=== PATIENT | female | born 1980 | race African-American/Black ===

== ENCOUNTER 2020-10-15 16:52 | Emergency (ER) | payer BC, MEDICAID, SELFPAY ==
[2020-10-15] VITALS (8 sets, daily range): BP systolic 108–117; BP diastolic 72–87; PULSE 68–86; RESP 16–31; TEMP 36.2–36.7; O2SAT 97–100
--- NOTE | ~2020-10-15 | CT_ITS ---
EXAMINATION: CT brain wo con DATE: 10/15/2020 17:07 INDICATION: Seizure TECHNIQUE: Computed tomography (CT) of the head was performed without intravenous contrast. Sagittal and coronal reconstructions were performed. The mA was adjusted according to patient size. Iterative reconstruction technique was employed. The dose-length product was 605.33 mGy-cm. COMPARISON: None FINDINGS: No acute intracranial hemorrhage, acute infarction or abnormal extra axial fluid collection. Ventricl es are normal and symmetric. No mass/mass effect. The orbits, paranasal sinuses and mastoid air cells are normal. IMPRESSION: 1. Normal head CT. Reviewed, dictated and finalized at location A. NG MAN IMPRESSION: 1. Normal head CT.
--- NOTE | 2020-10-15 16:54 | ECG_ITS ---
Measurements Intervals [place] Rate: 86 P: 42 OR: 170 QRS: -3 QRSD: 92 T: -3 QT: 379 QTc: 455 Interpretive Statements SINUS RHYTHM VOLTAGE CRITERIA FOR LVH BORDERLINE T WAVE ABNORMALITY- ANT/INF LEADS BORDERLINE ECG Electronically Signed On 10-15-2020 19:58:14 NURSING INFORMATICS CLINICAL ANALYST by Rolando Barrett D.O.
--- NOTE | 2020-10-15 17:21 | ED.GENADULT ---
HPI - General Adult General Chief complaint: Seizure <Ben Bhagat PA-C - Last Filed: 10/15/20 19:18> Stated complaint: seizure <Ben Bhagat PA-C - Last Filed: 10/15/20 19:18> Source: patient and EMS <Ben Bhagat PA-C - Last Filed: 10/15/20 19:18> Mode of arrival: EMS <Ben Bhagat PA-C - Last Filed: 10/15/20 19:18> Limitations: no limitations <Ben Bhagat PA-C - Last Filed: 10/15/20 19:18> History of Present Illness HPI narrative: Patient is a 40-year-old female who presents after having reported seizure patient was in the vehicle shaking not responsive and EMS was contacted came out evaluated the patient was postictal during transfer to the emergency department had improvement in mentation on arrival patient is alert and oriented x3. Patient denies any illness trauma similar occurrence in the past or history of seizures. Patient on arrival is in no distress denying any pain <Ben Bhagat PA-C - Last Filed: 10/15/20 19:18> Related Data Allergies/adverse reactions: Allergies Allergy/AdvReac Type Severity Reaction Status Date / Time No Known Allergies Allergy Mild Unverified 05/10/09 11:25 <Ben Bhagat PA-C - Last Filed: 10/15/20 19:18> Review of Systems Review of Systems: All systems reviewed & are unremarkable except as noted in HPI and below <Ben Bhagat PA-C - Last Filed: 10/15/20 19:18> [facility] Social History Social History: Social History (Updated 10/15/20 @ 17:22 by Ben Bhagat PA-C) Smoking status: Current every day smoker Substance use type: marijuana <Ben Bhagat PA-C - Last Filed: 10/15/20 19:18> Exam Narrative: Exam Narrative: GENERAL: Well-appearing, well-nourished, and in no acute distress. HEAD: Normocephalic, atraumatic. EYES: PERRLA and EOMI. ENT: Nares clear, no rhinorrhea or epistaxis. Mucous membranes moist. NECK: Supple. No adenopathy or masses. CHEST: Clear to auscultation. No respiratory distress. No wheezes rales or rhonchi HEART: Regular rate and rhythm. No murmur heard. Normal peripheral pulses. ABDOMEN: Soft, nontender, nondistended EXTREMITIES: Normal range of motion. No edema. SKIN: Warm, dry, no rash. NEURO: No focal deficits. Alert and oriented x3. Cranial nerves II through XII grossly intact. Normal speech. Motor and sensory intact and symmetrical in the extremities PSYCH: Normal mood and affect. <Ben Bhagat PA-C - Last Filed: 10/15/20 19:18> Course Course Emergency Course: Patient evaluated in the emergency department has remained normal mentation no issues in the ER discussion was made with neurology who will help follow the patient it is felt that the patient likely had a seizure patient notes she has been under increasing stress of late and believes that this may be part of the cause of her symptoms patient otherwise denies any other symptoms or complaints patient's evaluations and findings seem consistent with seizure activity patient will be discharged home lives with family has family present who will help check on her and help facilitate checking in with neurology and primary care tomorrow for further evaluation patient agrees with this plan feels comfortable going home is aware of discussion and recommendations of neurology <Ben Bhagat PA-C - Last Filed: 10/15/20 19:18> [employer]/PA Physician Supervision For this patient encounter, I reviewed the [employer] or PA documentation, treatment plan, and medical decision making; and I had [id number] time with this patient. Patient presented to ED after reported seizure like activity. Pt's lactic acid found to be elevated consistent with seizure activity. Neurology consultation occurred and the patient will be discharged to follow-up on an outpatient basis. <Dionicio Salvador DO - Last Filed: 10/15/20 19:26> Consultations Consultation #1: Discussed case with neurologist Dr. Boggs who recommends the brennan
[2020-10-15] MEDS: LACTATED RINGERS 1,000 ML 999 ML IV CONT (17:31)
[2020-10-15 17:39] LABS: Basophils Absolute Auto 0.1 K/mm3 (0.0-0.1); Basophils Percent Auto 0.6 % (0.2-1.2); Eosinophils Absolute Auto 0.2 K/mm3 (0-0.3); Eosinophils Percent Auto 2.2 % (0-4.4); Hematocrit 39.5 % (37.0-47.0); Hemoglobin 12.8 g/dL (12.0-15.0); Immature Granulocyte Absolute 0.04 K/mm3 (0.00-0.031); Immature Granulocyte Percent A 0.5 % (0-0.5); Lymphocytes Absolute Auto 1.99 K/mm3 (0.9-3.2); Lymphocytes Percent Auto 24.8 % (18.3-44.2); Mean Corpuscular HGB Conc 32.4 g/dl (32-36); Mean Corpuscular Hemoglobin 31.8 pg (26-34); Mean Platelet Volume 9.5 fl (7.4-10.4); Monocytes Absolute Auto 0.4 K/mm3 (0.1-0.6); Monocytes Percent Auto 5.4 % (2.6-8.5); Neutrophils Absolute Auto 5.3 K/mm3 (1.3-6.7); Neutrophils Percent Auto 66.5 % (45.5-73.1); Platelet Count Result 299 k/mm3 (150-375); Red Blood Count 4.03 M/mm3 (4.2-5.4); Red Cell Distribution Width 13.2 % (11.5-14.5)
[2020-10-15 17:48] LABS: Prothrombin Time 13.3 Seconds (11.1-14.7)
[2020-10-15 18:07] LABS: Alanine Aminotransferase 27 U/L (4-35); Albumin Level 4.4 g/dL (3.5-5.1); Alkaline Phosphatase 50 U/L (38-126); Anion Gap 12 mmol/L (8-16); Aspartate Amino Transferase 29 U/L (14-36); Bilirubin,Total 0.2 mg/dL (0.2-1.3); Blood Urea Nitrogen 12 mg/dL (7-17); CRP 0.6 mg/dL (<1.0); Carbon Dioxide 19 mmol/L (22-30); Chloride 107 mmol/L (98-107); Estimated CRCL calculation 95 ml/min; Estimated Glomerular Filt Rate > 60; Glucose 133 mg/dL (65-105); Lactic Acid Reflex 6.9 mmol/L (0.7-2.1); Sodium 138 mmol/L (137-145)
[2020-10-15 18:10] LABS: Add Urine Microscopic? YES; Appearance Urine Clear (Clear); Bilirubin Urine Negative (Negative); Blood Urine Negative (Negative); Color Urine Yellow (Yellow); Glucose Urine UA Negative (Negative); Ketones Urine Negative (Negative); Leukocyte Esterase Ur Negative LEU/UL (Negative); Mucus Urine Heavy /lpf; Nitrate Urine Negative (Negative); Protein Urine 2+ mg/dL (Negative); Squamous Epithelial Cell Urine Occasional /hpf (Few); Urobilinogen Urine Negative mg/dL (<2.0); WBC Urine 0-3 /hpf
[2020-10-15 18:14] LABS: Potassium 3.6 mmol/L (3.4-5.0)
[2020-10-15 18:23] LABS: Amphetamine Screen Urine Negative (Negative); Barbiturate Screen Urine Negative (Negative); Benzodiazepines Screen Urine Negative (Negative); Cannabinoid Screen Urine Positive (Negative); Cocaine Screen Urine Negative (Negative); Methadone Screen Urine Negative (Negative); Opiate Screen Urine Negative (Negative); Phencyclidine Screen Urine Negative (Negative)
[2020-10-15] MEDS: SODIUM CHLORIDE 0.9% IV 1,000 ML 999 ML IV CONT (18:23)
[2020-10-15 20:35] LABS: Reflex Lactic Acid Yes or No Add Lactic
== END 2020-10-15 19:26 | disposition home or self-care (01) ==
PROVIDERS: Emergency Medicine Emergency Medical Services; Emergency Provider Emergency Medicine; PCP Family Medicine
DX: R56.9 Unspecified convulsions (principal); F17.210 Nicotine dependence, cigarettes, uncomplicated; R94.31 Abnormal electrocardiogram [ECG] [EKG]
CPT/HCPCS: 36415; 70450; 80053; 80307; 81001; 83605; 85025; 85610; 85730; 86140; 93005; 99284; J7030; J7120

== ENCOUNTER 2020-11-09 12:34 | Outpatient (CLI) | payer BC, MEDICAID, SELFPAY ==
--- NOTE | 2020-11-10 15:12 | WPDNEUROLOGY ---
Neurology EEG Report General Information Date of Study: 11/09/20 TEST eeg DIAGNOSIS syncope and collapse CONDITION OF RECORDING awake and drowsy EEG NUMBER [id number] CLINICAL HISTORY patient reported couple of weeks ago she lost consciousness for about 20 minutes. [place] fine before it happened. Witness reported her eyes were bulging, slight above was running down the [place] and she was shaved EEG DESCRIPTION basic resting occipital frequency consists of large amount of low to medium voltage 9 to 11 hertz persecond alpha admixed with low-voltage beta activity bilaterally. multiple EKG artifacts are noted. Non paroxysma.l nonfocal. nonlateralizing. IMPRESSION No significant abnormalities noted
== END 2020-11-09 12:35 | disposition home or self-care (01) ==
PROVIDERS: PCP Family Medicine; Visit Provider Psychiatry & Neurology Neurology
DX: R55 Syncope and collapse (principal)
CPT/HCPCS: 95816

== ENCOUNTER 2020-11-09 12:37 | Outpatient (CLI) | payer BC, MEDICAID, SELFPAY ==
--- NOTE | 2020-11-16 12:40 | WPDHOLTEREM ---
Holter/Event Monitor Holter/Event Monitor Date of procedure: 11/09/20 Procedure Type: 48 hour holter monitor Indications: Syncope Conclusion: 1. 48 hour holter monitor on 11/09/20. 2. Underlying rhythm is sinus rhythm. HR range 51-129 bpm; average HR 79 bpm. 3. No premature supraventricular complexes. No supraventricular tachycardia. 4. No premature ventricular complexes. No ventricular tachycardia. 5. No sinoatrial or atrioventricular blocks. No significant pauses greater than 2 seconds. 6. No symptoms available for correlation.
== END 2020-11-09 12:38 | disposition home or self-care (01) ==
PROVIDERS: PCP Family Medicine; Visit Provider Family Medicine
DX: E66.9 Obesity, unspecified (principal); R55 Syncope and collapse; R79.89 Other specified abnormal findings of blood chemistry
CPT/HCPCS: 93225; 93226

== ENCOUNTER 2021-04-14 16:43 | Observation (INO) | payer MEDICAID, SELFPAY ==
--- NOTE | ~2021-04-14 | CT_ITS ---
EXAMINATION: CT brain wo con DATE: 04/14/2021 17:48 INDICATION: Seizure TECHNIQUE: Computed tomography (CT) of the head was performed without intravenous contrast. Sagittal and coronal reconstructions were performed. The mA was adjusted according to patient size. Iterative reconstruction technique was employed. The dose-length product was 605.33 mGy-cm. COMPARISON: head CT dated 10/15/2020 FINDINGS: No acute intracranial hemorrhage, acute infarction or abnormal extra axial fluid collection. Ventricl es are normal and symmetric. No mass/mass effect. The orbits, paranasal sinuses and mastoid air cells are normal. IMPRESSION: 1. Normal head CT. Reviewed, dictated and finalized at location A. IMPRESSION: 1. Normal head CT.
--- NOTE | ~2021-04-14 | XR_ITS ---
EXAMINATION: XR chest 1V DATE: 04/14/2021 17:55 INDICATION: Seizure TECHNIQUE: frontal view of the chest was obtained. COMPARISON: None FINDINGS: The lungs are clear with no focal airspace opacities, pulmonary edema, pleural effusion or pneumothor ax. The cardiomediastinal silhouette is normal. Visualized bones and soft tissues are unremarkable. IMPRESSION: 1. No acute cardiopulmonary disease. Reviewed, dictated and finalized at location A.
--- NOTE | ~2021-04-14 | MR_ITS ---
EXAMINATION: MR brain/brain stem wo con DATE: 04/15/2021 12:47 INDICATION: Seizure TECHNIQUE: Magnetic resonance imaging (MRI) of the brain and brainstem was performed without intraven ous contrast. Sequences included sagittal and axial T1-weighted SE, axial diffusion-weighted FS SE, a xial T2*-weighted GRE, axial T2-weighted FLAIR Propeller, axial T2-weighted Propeller, coronal T2-jameel ghted FLAIR, and coronal T1-weighted 3D FSPGR. Apparent diffusion coefficient (ADC) maps were created . COMPARISON: CT dated 04/14/2021 FINDINGS: There are no areas of restricted diffusion to suggest acute infarction. No intracranial hemorrhage or abnormal intracranial mass lesion. There are no intraparenchymal signal abnormalities seen on the ot her pulse sequences. The ventricles are symmetric and normal in size. The hippocampi are normal and s ymmetric. No alex matter heterotopias or other neuronal migrational abnormalities identified. There a re no abnormal extra-axial fluid collections. Flow voids are seen in the cerebral arteries on the T2- weighted sequences consistent with their expected patency. Visualized orbits and soft tissues are unr emarkable. IMPRESSION: 1. Normal brain MR . No etiology identified for reported recurrent seizures. Reviewed, dictated and finalized at location A.
[2021-04-14 16:46] VITALS: BP 107/71; PULSE 103; RESP 24; TEMP 36.7; O2SAT 99
--- NOTE | 2021-04-14 17:32 | ECG_ITS ---
Measurements Intervals [place] Rate: 79 P: 41 MS: 148 QRS: -11 QRSD: 97 T: -3 QT: 352 QTc: 405 Interpretive Statements SINUS RHYTHM DELAYED PRECORDIAL R/S TRANSITION VOLTAGE CRITERIA FOR LVH BORDERLINE T WAVE ABNORMALITY- ANT/INF LEADS BASELINE ARTIFACT- I, II, III, AVR, AVL, AVF, V1-V6 BORDERLINE ECG Electronically Signed On 04-14-2021 20:16:14 CDT by Rolando Barrett D.O.
--- NOTE | 2021-04-14 17:45 | ED.GENADULT ---
HPI - General Adult General Chief complaint: Seizure Stated complaint: seizures Time Seen by Provider: 04/14/21 17:29 Source: patient, EMS and RN notes reviewed Mode of arrival: EMS Limitations: no limitations History of Present Illness HPI narrative: Patient is 40 years old -[place] female, brought to the emergency room by ambulance for possible seizure. Patient is telling me that she was sleeping and then woke up and found EMT at her home. Patient does not know what happened. According to her kids 11 and 16 years old who called the ambulance and told EMT that patient was laying down on the couch suddenly had full body convulsion-like activities lasted probably for 1 minute. EMT reported that patient was slightly confused on arrival to her house, on arrival to the emergency room patient is asymptomatic, awake, alert and oriented x4 denying any symptoms. Patient is telling me that she had similar symptoms 3 months ago came to our emergency room then followed with her family physician and a neurologist without specific diagnosis. Patient on fiber and vitamins at home, does not take medication, she smokes cigarettes, marijuana, does not drink. Patient is not vaccinated for COVID-19. Patient denies any fever, chills, nausea, vomiting, headache, focal deficit, urinary symptoms, chest pain shortness of breath or abdominal pain. Patient denies biting her tongue or had urine incontinence. Patient still driving although had seizure-like activity 3 months ago Patient had EEG and holter monitor on 11/09/20, both of which were unremarkable. Patient is telling me that she have tons of stress I was able to talk to her daughter by the phone who told me that patient was laying down on the couch trying to sleep and suddenly start spasming out and foaming from the mouth lasted for about 3 minutes and was confused and in and out of consciousness until the ambulance arrived, and was mumbling at that time but at the time of going with the ambulance she was back to her normal mental status. The daughter is telling me that the post ictal duration was 5 to 10 minutes. Related Data Home Medications Medication Instructions Recorded Confirmed No Home Medications 10/24/20 Allergies Allergy/AdvReac Type Severity Reaction Status Date / Time No Known Allergies Allergy Mild Verified 11/23/20 14:53 Review of Systems Review of Systems: CONSTITUTIONAL: Denies fever, chills, or sweats. EYES: Denies visual changes, redness, or discharge. ENT: Denies rhinorrhea, congestion, sore throat, or otalgia. CARDIOVASCULAR: Denies chest pain, palpitations, or edema. RESPIRATORY: Denies cough or dyspnea. GASTROINTESTINAL: Denies abdominal pain, nausea, vomiting, or diarrhea. GENITOURINARY: Denies dysuria or hematuria. SKIN: Denies rash or itching. MUSCULOSKELETAL: Denies back pain, joint pain, or myalgia. NEUROLOGIC: Denies headache, numbness, or weakness. PSYCHIATRIC: Denies anxiety or depression. [facility] Social History Social History Substance use type: marijuana Gender identity (if verbalized by the patient): Female Exam Narrative: General appearance: Well-developed, well-nourished Skin: Normal color Head: Normocephalic, nontraumatic Eyes: Clear conjunctiva ENT: Oropharynx normal, ears normal, nose normal Neck: Supple, nontender Chest and respiratory: Airway patent, no respiratory distress, no accessory muscle use Heart: Regular rate/rhythm Abdomen: Soft, nontender, no organomegaly, quiet bowel sounds Vascular: Normal peripheral pulses, normal capillary refill. Musculoskeletal: Normal range of motion, nontender back Neurologic: Alert and oriented ?3, MECHANICAL PIPING DESIGNER is normal as tested, no gross motor deficit
[2021-04-14 18:14] LABS: Basophils Percent Auto 0.4 % (0.2-1.2); Eosinophils Absolute Auto 0.2 K/mm3 (0-0.3); Eosinophils Percent Auto 1.7 % (0-4.4); Hematocrit 40.3 % (37.0-47.0); Hemoglobin 13.4 g/dL (12.0-15.0); Immature Granulocyte Absolute 0.04 K/mm3 (0.00-0.031); Immature Granulocyte Percent A 0.4 % (0-0.5); Lymphocytes Absolute Auto 1.31 K/mm3 (0.9-3.2); Lymphocytes Percent Auto 14.2 % (18.3-44.2); Mean Corpuscular HGB Conc 33.3 g/dl (32-36); Mean Corpuscular Hemoglobin 31.2 pg (26-34); Mean Corpuscular Volume 93.9 fl (80-100); Mean Platelet Volume 9.6 fl (7.4-10.4); Monocytes Absolute Auto 0.7 K/mm3 (0.1-0.6); Monocytes Percent Auto 7.9 % (2.6-8.5); Neutrophils Absolute Auto 6.9 K/mm3 (1.3-6.7); Neutrophils Percent Auto 75.4 % (45.5-73.1); Platelet Count Result 296 k/mm3 (150-375); Red Blood Count 4.29 M/mm3 (4.2-5.4); Red Cell Distribution Width 13.1 % (11.5-14.5); White Blood Count 9.2 K/mm3 (4.5-10.0)
[2021-04-14 18:23] LABS: Alanine Aminotransferase 21 U/L (4-35); Albumin Level 4.4 g/dL (3.5-5.1); Alkaline Phosphatase 62 U/L (38-126); Anion Gap 9 mmol/L (8-16); Aspartate Amino Transferase 27 U/L (14-36); Bilirubin,Total < 0.1 mg/dL (0.2-1.3); Blood Urea Nitrogen 12 mg/dL (7-17); Calcium 9.4 mg/dL (8.4-10.2); Carbon Dioxide 26 mmol/L (22-30); Chloride 101 mmol/L (98-107); Estimated CRCL calculation 85 ml/min; Estimated Glomerular Filt Rate > 60; Glucose 93 mg/dL (65-110); Potassium 4.3 mmol/L (3.4-5.0); Sodium 136 mmol/L (137-145)
[2021-04-14 19:00] LABS: Add Urine Microscopic? YES; Appearance Urine Clear (Clear); Bilirubin Urine Negative (Negative); Blood Urine Negative (Negative); Color Urine Yellow (Yellow); Glucose Urine UA Negative (Negative); Ketones Urine Negative (Negative); Leukocyte Esterase Ur Negative LEU/UL (Negative); Mucus Urine Rare /lpf; Nitrate Urine Negative (Negative); Protein Urine 2+ mg/dL (Negative); Specific Grav Ur 1.023 (1.001-1.035); Squamous Epithelial Cell Urine Rare /hpf (Few); Urobilinogen Urine Negative mg/dL (<2.0); WBC Urine 0-3 /hpf
[2021-04-14 19:12] LABS: Amphetamine Screen Urine Negative (Negative); Barbiturate Screen Urine Negative (Negative); Benzodiazepines Screen Urine Negative (Negative); Cannabinoid Screen Urine Positive (Negative); Cocaine Screen Urine Negative (Negative); Methadone Screen Urine Negative (Negative); Opiate Screen Urine Negative (Negative); Phencyclidine Screen Urine Negative (Negative)
[2021-04-14] MEDS: levETIRAcetam 1000MG/NACL100ML 1,000 MG/100 ML BAG 400 MG IVPB (19:58)
[2021-04-14 20:33] VITALS: BP 113/79; PULSE 76; RESP 15; O2SAT 100
--- NOTE | 2021-04-14 22:19 | PM.IMHP ---
H&P: HPI History of Present Illness Date/Time: 04/14/21 22:19 Chief Complaint: Seizure Narrative: Patient is 40 years old -[place] female brought to the emergency room by ambulance for possible seizure. Patient states that she was lying down on the couch rest after she had worked this morning. When she woke up she found EMT at her house. She states that her son heard trembling sound from the living room where she was and was found to be seizing and EMS was called. She also reports that her son told her she was frothing from her mouth at the time of the event. The event last long but she is not sure how long it lasts as she has not been able to talk to her son yet. She was then brought to the ER and was sleepy throughout the ride. She has been back to her normal self since coming to the ER. She had similar episode 3 months ago where she was in the car as a passenger and suddenly passed out and was shaking. Workup has been negative since then with normal CT head. She also seen neurologist and EEG was done which was negative. She also had a Holter monitor on 11/09/2020 which was unremarkable. Review of Systems Review of Systems: - CONSTITUTIONAL: Denies weight loss, fever and chills. - HEENT: Denies changes in vision and hearing - RESPIRATORY: Denies SOB and cough. - CV: Denies palpitations and CP. - GI: Denies abdominal pain, nausea, vomiting and diarrhea. - : Denies dysuria and urinary frequency. - MSK: Denies myalgia and joint pain. - SKIN: Denies rash and pruritus. - NEUROLOGICAL: Denies headache and syncope. - PSYCHIATRIC: Denies recent changes in mood. Denies anxiety and depression. All systems reviewed & are unremarkable except as noted in HPI and below Constitutional: Constitutional: Reports fatigue and Reports weakness Neurologic: Reports weakness Endocrine: Endocrine: Reports fatigue PMFSH Social History Social History Smoking status: Never smoker Alcohol intake: never Substance use: current Substance use type: marijuana Other substance usage details: oils and smoking Last use: 04/14/21 Gender identity (if verbalized by the patient): Female Spiritual care concerns: No Meds Home Medications and Allergies Home Medications Medication Instructions Recorded Confirmed Type multivitamin [Daily Multivitamin] 1 tablet PO DAILY 04/14/21 04/14/21 History psyllium [Metamucil] 1 packet PO DAILY 04/14/21 04/14/21 History Allergies Allergy/AdvReac Type Severity Reaction Status Date / Time No Known Allergies Allergy Mild Verified 04/14/21 21:54 Vital Signs Vital Signs - 24 hr 04/14/21 16:46 04/14/21 20:33 Temperature 98.1 F Pulse Rate 103 H 76 Respiratory Rate 24 H 15 Blood Pressure 107/71 113/79 Pulse Oximetry 99 100 Exam Narrative: General appearance: Well-developed, well-nourished Skin: Normal color no rash Head: Normocephalic, nontraumatic Eyes: Clear conjunctiva ENT: Oropharynx normal, ears normal, nose normal Neck: Supple, nontender Chest and respiratory: Airway patent, no respiratory distress, no accessory muscle use Heart: Regular rate/rhythm Abdomen: Soft, nontender, no organomegaly, quiet bowel sounds Vascular: Normal peripheral pulses, normal capillary refill. Musculoskeletal: Normal range of motion, nontender back Neurologic: Alert and oriented ?3, GREEN END WORKER is normal as tested, no gross motor deficit H&P: Results Labs Labs: Short CBC 04/14/21 Range/Units 18:06 WBC 9.2 (4.5-10.0) K/mm3 Hgb 13.4 (12.0-15.0) g/dL Hct 40.3 (37.0-47.0) % Plt Count 296 (150-375) k/mm3 [facility] 04/14/21 18:
[2021-04-14 22:30] VITALS: BP 109/88; PULSE 74; RESP 21; TEMP 36.9; O2SAT 100
[2021-04-14 22:51] VITALS: BMI 41.0
[2021-04-15 00:15] LABS: CRP < 0.5 mg/dL (<1.0)
[2021-04-15 01:47] LABS: Erythrocyte Sedimentation Rate 15 mm/hr (0-20)
[2021-04-15 06:00] VITALS: BP 133/89; PULSE 79; RESP 21; TEMP 36.1; O2SAT 100
[2021-04-15] MEDS: levETIRAcetam 500 MG TABLET PO ×2 (09:06→20:46)
[2021-04-15] MEDS: MULTIVITAMINS THERAPEUTIC TAB (*BKC) 1 TABLET PO (09:10)
[2021-04-15 09:11] VITALS: RESP 18; O2SAT 100
[2021-04-15] MEDS: PSYLLIUM POWDER PACKET 1 PACKET PO (09:11)
[2021-04-15 14:00] VITALS: BP 112/70; PULSE 72; RESP 16; TEMP 35.6; O2SAT 100
--- NOTE | 2021-04-15 16:06 | PM.IMPN ---
Progress Note: A&P Assessment and Plan (1) Generalized seizure: Code(s): R56.9 - Unspecified convulsions Status: Acute (2) Cannabis use disorder, mild, abuse: Code(s): F12.10 - Cannabis abuse, uncomplicated Status: Acute Additional Plan Generalized seizure, witnessed on 04/14 history of syncope/seizure back in October 2020 followed by workup Prior workup with Holter monitor normal EEG on 11/09/[address] head is negative, labs unremarkable. continue 500 b.i.d. Keppra pendingapnea link to rule out any underlying AZRA as the event happened while she was sleeping. TSH unremarkable, remaining workup including MARICRUZ and MRIpending will keep patient admitted, until neurology can comment on further seizure workup, and Keppra dosing Subjective Date/time seen: 04/15/21 16:06 no acute medical complaints, lying comfortably in bed Review of Systems Review of Systems: All systems reviewed & are unremarkable except as noted in HPI and below Constitutional: Constitutional: Reports fatigue and Reports weakness Neurologic: Reports weakness Endocrine: Endocrine: Reports fatigue Exam Narrative: General appearance: Well-developed, well-nourished Skin: Normal color no rash Head: Normocephalic, nontraumatic Eyes: Clear conjunctiva ENT: Oropharynx normal, ears normal, nose normal Neck: Supple, nontender Chest and respiratory: Airway patent, no respiratory distress, no accessory muscle use Heart: Regular rate/rhythm Abdomen: Soft, nontender, no organomegaly, quiet bowel sounds Vascular: Normal peripheral pulses, normal capillary refill. Musculoskeletal: Normal range of motion, nontender back Neurologic: Alert and oriented ?3, STRIKER OUT is normal as tested, no gross motor deficit Objective Data Vital Signs Vital Signs: Vital Signs - 24 hr 04/14/21 16:46 04/14/21 20:33 04/14/21 22:30 Temperature 98.1 F 98.4 F Pulse Rate 103 H 76 74 Respiratory Rate 24 H 15 21 H Blood Pressure 107/71 113/79 109/88 Pulse Oximetry 99 100 100 04/15/21 06:00 04/15/21 09:11 04/15/21 14:00 Temperature 97.0 F L 96.0 F L Pulse Rate 79 72 Respiratory Rate 21 H 18 16 Blood Pressure 133/89 112/70 Pulse Oximetry 100 100 100 Intake/Output Intake/Output: Intake & Output 04/12/21 04/13/21 04/14/21 04/15/21 23:59 23:59 23:59 23:59 Intake Total 100 250 Output Total 500 Balance 100 -250 Meds/Results Medications: Active Medications Generic Name Dose Route Start Last Admin Trade Name Freq PRN Reason Stop Dose Admin Acetaminophen 1,000 mg in 100 mls @ 400 mls/hr 04/14/21 18:50 Ofirmev 1,000 Mg Ivpb IVPB 04/15/21 18:51 Q6H PRN Mild Pain (1-3) or Fever Levetiracetam 500 mg 04/15/21 09:00 04/15/21 09:06 Levetiracetam 500 Mg Tablet PO 500 mg Q12HR BIRGIT Administration Multivitamins Therapeutic 1 tablet 04/15/21 09:00 04/15/21 09:10 Multivitamins Therapeutic Tab (*Bkc) PO 1 tablet DAILY BIRGIT Administration Psyllium Hydrophilic Mucilloid 1 packet 04/15/21 09:00 04/15/21 09:11 Psyllium Powder Packet PO 1 packet DAILY BIRGIT Administration Radiology Results: ITS Impressions Head CT 04/14/21 17:58 IMPRESSION: 1. Normal head CT. Chest X-Ray 04/14/21 18:01 IMPRESSION: 1. No acute cardiopulmonary disease. Labs Labs: Laboratory Results - last 24 hr 04/14/21 04/14/21 04/14/21 18:05 18:05 18:05 WBC RBC Hgb Hct MCV MCH MCHC RDW Plt Count MPV Immature Gran % (Auto) Neut % (Auto) Lymph % (Auto) [place] % (Auto) Eos % (Auto) Baso % (Auto) Lymph # (Auto) [place] # (Auto) Eos # (Auto) Baso # (Aut
--- NOTE | 2021-04-15 18:53 | PC.NURSE ---
Spoke to Dr Yee. Dr Yee aware that Dr Mancilla is unavailable for patient consult until 04/23/21. Dr Yee is keeping patient one more night to monitor for seizure activity. If no seizure activity patient will be sent home on oral Keppra on 04/16/21.
[2021-04-15 22:00] VITALS: BP 103/67; PULSE 88; RESP 21; TEMP 36.7; O2SAT 100
--- NOTE | 2021-04-15 23:54 | PCRCNOTE ---
Pt refuse Apnea link for tonight.
[2021-04-16 06:00] VITALS: BP 106/69; PULSE 81; RESP 21; TEMP 36.7; O2SAT 100
[2021-04-16 08:35] VITALS: RESP 20; O2SAT 100
[2021-04-16] MEDS: levETIRAcetam 500 MG TABLET PO (08:35)
[2021-04-16] MEDS: PSYLLIUM POWDER PACKET 1 PACKET PO (08:35)
[2021-04-16] MEDS: MULTIVITAMINS THERAPEUTIC TAB (*BKC) 1 TABLET PO (08:35)
--- NOTE | 2021-04-16 09:55 | P.DS_ITS ---
DS: Admitting Diagnosis Admitting Diagnosis Seizure DS: Discharge Diagnosis Discharge Diagnosis (1) Generalized seizure: Code(s): R56.9 - Unspecified convulsions Status: Acute (2) Cannabis use disorder, mild, abuse: Code(s): F12.10 - Cannabis abuse, uncomplicated Status: Acute DS: Summary Hospital Course Reason for hospitalization: Seizure Hospital Course: Patient is a 40-year-old lady with history of seizure in October presenting with observed generalized seizure by her son on 8, early afternoon. She was lying on the couch, after a strenuous day, and observes t rembling of limbs, followed by a loss of consciousness, son came from adjacent room, and observed mother having full seizure. The episode was similar to the 1 that she had in October. Workup in October, was unrevealing. EEG was normal CT did not reveal etiology, and Holter monitor did not show sustained rhythm abnormalities. Workup this hospitalization, included a head CT and brain MRI, both of which did not indicate a reason for her to be having seizures. While hospitalized, she was treated with Keppra 500 b.i.d., and on this regimen has not had a recurrence of symptoms. Patient will be discharged on 500 b.i.d. Keppra, very close follow-up with primary care and Neurology to titrate Keppra dosing, potentially add another antiepileptic medications, and continue workup including possibly repeat EEG. Patient instructed to not drive and avoid high places, as there is potential of breakthrough seizure while on Keppra. Status at Discharge Functional status at discharge: independent ambulation Overall status at discharge: patient is progressing back to baseline Time Spent with Patient Time attestation: Total time spent providing and/or coordinating discharge services: Time spent: Less than 30 minutes Exam Const: General: no acute distress HENMT: Mouth: Yes moist mucous membranes Eyes: General: appearance normal, both eyes and all related structures Neck: Neck: no JVD Resp: Auscultation: clear to auscultation bilaterally Cardio: Rate: regular rate Rhythm: regular rhythm GI: Inspection: non-distended GI Palp: Yes Soft to palpation, No Firmness to palpation present (GI) and No Tenderness to palpation present (GI) Skin: General skin exam: normal color and no rashes or lesions noted Neuro: General: gait normal Motor exam (neuro): Normal motor muscle tone present throughout Discharge Plan Discharge Attending physician on discharge: Anais Yee Consulting providers: Sylvester Boggs Discharging Clinician: Anais Yee Patient Disposition: Home, Self-Care Activity: no straining and no driving Diet: regular Patient Instructions: Antibiotic Form, Levetiracetam (By mouth) Stand Alone Forms: General Discharge Information Follow-up/Referrals: Ajith Zarco MD [Primary Care Provider] - Call for Appointment Sylvester Boggs MD [Physician] - Call for Appointment Discharge Medications: New levetiracetam [Keppra] 500 mg Tablet 500 mg PO Q12HR Qty: 60 RF: 2 Continued multivitamin [Daily Multivitamin] Tablet 1 tablet PO DAILY RF: 0 Metamucil Packet 1 packet PO DAILY RF: 0 Date of admission: 04/14/21 19:06 Primary Care Provider: Ajith Zarco Admitting Provider: Natacha Esquivel Attending physician on admission: Natacha Esquivel Condition: Guarded Prognosis
[2021-04-18 05:40] LABS: Prolactin 8.6 ng/mL (***)
== END 2021-04-16 13:15 | disposition home or self-care (01) ==
LOC: ANHED 17:30 → ANH2MED 04-15 04:50
PROVIDERS: Internal Medicine; Admitting Provider Internal Medicine; Emergency Provider Emergency Medicine; PCP Family Medicine; Visit Provider Internal Medicine
DX: R56.9 Unspecified convulsions (principal); F12.10 Cannabis abuse, uncomplicated
CPT/HCPCS: 36415; 70450; 70551; 71045; 80053; 80307; 81001; 84146; 84443; 85025; 85652; 86038; 86140; 93005; 96365; 99285; A9270; G0378; J1953

== ENCOUNTER 2021-08-20 03:12 | Emergency (ER) | payer OTHER, SELFPAY ==
[2021-08-20 03:16] VITALS: BP 125/83; PULSE 93; RESP 19; TEMP 37; O2SAT 100
[2021-08-20 03:25] VITALS: PULSE 86; O2SAT 100
--- NOTE | 2021-08-20 03:28 | ECG_ITS ---
Measurements Intervals [place] Rate: 81 P: 44 SD: 166 QRS: -3 QRSD: 93 T: -7 QT: 368 QTc: 429 Interpretive Statements SINUS RHYTHM VOLTAGE CRITERIA FOR LVH BORDERLINE T WAVE ABNORMALITY- INFERIOR LEADS BASELINE ARTIFACT- V1 BORDERLINE ECG Electronically Signed On 08-22-2021 10:40:07 MANAGER JAVA by Rolando Barrett D.O.
[2021-08-20] MEDS: levETIRAcetam 1000MG/NACL100ML 1,000 MG/100 ML BAG 400 MG IVPB (04:11)
--- NOTE | 2021-08-20 04:14 | ED.GENADULT ---
HPI - General Adult General Chief complaint: Seizure Stated complaint: seizure Time Seen by Provider: 08/20/21 03:39 History of Present Illness HPI narrative: Patient is a 41-year-old female presents the emergency department with chief complaint of seizure. Patient has been seen earlier in the emergency department after she had a generalized tonic-clonic seizure at home. The patient reports she has been previously diagnosed with seizures I supposed to take Keppra but does not like the way the Keppra makes her feel. The patient states that she is to see neurology but has not scheduled her follow-up appointment with neurology. The patient states has been several months since she is taking the medication and states that tonight she has had multiple seizures Related Data Home Medications Medication Instructions Recorded Confirmed multivitamin 1 tablet PO DAILY 04/14/21 06/14/21 Allergies Allergy/AdvReac Type Severity Reaction Status Date / Time No Known Allergies Allergy Mild Verified 08/19/21 22:50 Review of Systems Review of Systems: A 10 system review of systems was completed on the patient and is negative except for what is stated in the HPI. Nursing and ancillary documentation was reviewed. [facility] Past Medical History Medical History Calculus of ureter Social History Social History Alcohol intake: never Substance use: current Substance use type: marijuana Other substance usage details: oils and smoking Last use: 04/14/21 Gender identity (if verbalized by the patient): Female Spiritual care concerns: No Exam Narrative: GENERAL: Well-appearing, well-nourished, and in no acute distress. HEAD: Normocephalic, atraumatic. EYES: PERRLA and EOMI. ENT: Nares clear, no rhinorrhea or epistaxis. Mucous membranes moist. NECK: Supple. CHEST: Clear to auscultation. No respiratory distress. HEART: Regular rate and rhythm. No murmur heard. Normal peripheral pulses. ABDOMEN: Soft, nontender, nondistended, normal active bowel sounds. EXTREMITIES: Normal range of motion. No edema. SKIN: Warm, dry, no rash. NEURO: No focal deficits. Alert and oriented x3. PSYCH: Normal mood and affect. Course Vital Signs Vital signs: Vital Signs Temperature 37.0 C 08/20/21 03:16 Pulse Rate 93 08/20/21 03:16 Respiratory Rate 19 08/20/21 03:16 Blood Pressure 125/83 08/20/21 03:16 Pulse Oximetry 100 08/20/21 03:16 Temperature 37.0 C 08/20/21 03:16 Pulse Rate 86 08/20/21 03:25 Respiratory Rate 19 08/20/21 03:16 Blood Pressure 125/83 08/20/21 03:16 Pulse Oximetry 100 08/20/21 03:25 Medical Decision Making Vital Signs Vital Signs: Vital Signs Temperature 37.0 C 08/20/21 03:16 Pulse Rate 93 08/20/21 03:16 Respiratory Rate 19 08/20/21 03:16 Blood Pressure 125/83 08/20/21 03:16 Pulse Oximetry 100 08/20/21 03:16 Temperature 37.0 C 08/20/21 03:16 Pulse Rate 86 08/20/21 03:25 Respiratory Rate 19 08/20/21 03:16 Blood Pressure 125/83 08/20/21 03:16 Pulse Oximetry 100 08/20/21 03:25 Discharge Plan Discharge Clinical Impression: Seizure Patient Disposition: Home, Self-Care Condition: Stable Instructions: Antibiotic Form, Recurrent Seizures in Adults (ED) Prescriptions: New levetiracetam [Keppra] 500 mg tablet 500 mg PO BID Qty: 60 RF: 0 No Action multivitamin Tablet 1 tablet PO DAILY RF: 0 Follow-up/Referrals: UNKNOWN,DOCTOR [Primary Care Provider] - Sylvester Boggs MD [Physician] - Steven Yee MD [Physician] - Time of Disposition: 05:40
[2021-08-20 06:03] VITALS: BP 127/94; PULSE 77; RESP 30; O2SAT 100
== END 2021-08-20 06:13 | disposition home or self-care (01) ==
PROVIDERS: Emergency Provider Emergency Medicine
DX: R56.9 Unspecified convulsions (principal); Z87.442 Personal history of urinary calculi; R94.31 Abnormal electrocardiogram [ECG] [EKG]
CPT/HCPCS: 93005; 96365; 99284; J1953

== ENCOUNTER 2021-11-20 20:17 | Emergency (ER) | payer OTHER, SELFPAY ==
[2021-11-20 20:23] VITALS: BP 135/87; PULSE 85; RESP 18; TEMP 36.8; O2SAT 98
--- NOTE | 2021-11-20 20:26 | ECG_ITS ---
Measurements Intervals [place] Rate: 76 P: 42 MN: 160 QRS: -3 QRSD: 88 T: 11 QT: 362 QTc: 408 Interpretive Statements SINUS RHYTHM MODERATE VOLTAGE CRITERIA FOR LVH, CONSIDER NORMAL VARIANT [MEETS CRITERIA IN ONE OF: R(aVL), S(V1), R(V5), R(V5/V6)+S(V1)] POSSIBLE ANTERIOR MYOCARDIAL INFARCTION , PROBABLY OLD [30 ms Q WAVE IN V3/V4, OR R < 0.2 mV IN V4] NONSPECIFIC T-WAVE ABNORMALITY ABNORMAL ECG Electronically Signed On 11-21-2021 13:54:55 CDT by Vinay Dewey M.D.
[2021-11-20 20:27] VITALS: PULSE 84
[2021-11-20 20:42] LABS: Basophils Absolute Auto 0.1 K/mm3 (0.0-0.1); Basophils Percent Auto 1.1 % (0.2-1.2); Eosinophils Absolute Auto 0.3 K/mm3 (0-0.3); Eosinophils Percent Auto 4.6 % (0-4.4); Hemoglobin 12.8 g/dL (12.0-15.0); Immature Granulocyte Absolute 0.01 K/mm3 (0.00-0.031); Immature Granulocyte Percent A 0.2 % (0-0.5); Lymphocytes Absolute Auto 2.34 K/mm3 (0.9-3.2); Lymphocytes Percent Auto 35.6 % (18.3-44.2); Mean Corpuscular Hemoglobin 31.1 pg (26-34); Mean Corpuscular Volume 97.3 fl (80-100); Mean Platelet Volume 9.2 fl (7.4-10.4); Monocytes Absolute Auto 0.6 K/mm3 (0.1-0.6); Monocytes Percent Auto 8.8 % (2.6-8.5); Neutrophils Absolute Auto 3.3 K/mm3 (1.3-6.7); Neutrophils Percent Auto 49.7 % (45.5-73.1); Platelet Count Result 372 k/mm3 (150-375); Red Blood Count 4.11 M/mm3 (4.2-5.4); Red Cell Distribution Width 13.2 % (11.5-14.5); White Blood Count 6.6 K/mm3 (4.5-10.0)
[2021-11-20 20:51] LABS: INR 0.9; Partial Thromboplastin Time 28.7 SECONDS (22.3-36.8); Prothrombin Time 11.9 Seconds (11.1-14.7)
[2021-11-20 20:59] LABS: Alanine Aminotransferase 25 U/L (4-35); Albumin Level 4.4 g/dL (3.5-5.1); Alkaline Phosphatase 57 U/L (38-126); Anion Gap 5 mmol/L (8-16); Aspartate Amino Transferase 36 U/L (14-36); Bilirubin,Total 0.2 mg/dL (0.2-1.3); Blood Urea Nitrogen 12 mg/dL (7-17); Calcium 8.9 mg/dL (8.4-10.2); Carbon Dioxide 29 mmol/L (22-30); Chloride 104 mmol/L (98-107); Estimated CRCL calculation 94 ml/min; Estimated Glomerular Filt Rate > 60; Glucose 101 mg/dL (65-110); Potassium 4.2 mmol/L (3.4-5.0); Sodium 138 mmol/L (137-145)
[2021-11-20 21:19] VITALS: BP 121/88; PULSE 70; RESP 18; O2SAT 100
[2021-11-20 21:42] LABS: Lactic Acid Reflex 1.1 mmol/L (0.7-2.1)
[2021-11-20] MEDS: levETIRAcetam 1000MG/NACL100ML 1,000 MG/100 ML BAG 400 MG IVPB (21:54)
[2021-11-20 22:09] VITALS: BP 126/87; PULSE 73; RESP 18; O2SAT 100
--- NOTE | 2021-11-20 22:09 | PC.NURSE ---
pt aware of need for urine specimen. Pt states she has taken PO keppra previously and has an RX at home for same. States she did not like the way it made her feel before and would like to explore other options.
--- NOTE | 2021-11-20 22:20 | ED.SEIZURE ---
HPI - Seizure General Chief Complaint: Seizure Stated Complaint: sz Time Seen by Provider: 11/20/21 20:47 Source: patient Mode of arrival: ambulatory Limitations: no limitations History of Present Illness HPI Narrative: 41-year-old female brought in today by EMS with complaints of seizure today. Patient states she was sitting in a chair when she stared off into space. Patient states she has a history of seizures but does not take her medications due to cost and the way they make her feel. Patient is previously seen Dr. Boggs in the past. Patient states she is supposed to be on Keppra twice a day but is not sure when the last time that she actually took it. Patient states she was sitting in a chair today when she just spaced out. Patient denies fall. Patient denies any incontinence of urinary or bowel. Per EMS patient was confused at scene. During assessment patient is alert oriented x3 and neurologically intact. Seizure History: Yes Related Data Home Medications Medication Instructions Recorded Confirmed multivitamin 1 tablet PO DAILY 04/14/21 06/14/21 Allergies Allergy/AdvReac Type Severity Reaction Status Date / Time No Known Allergies Allergy Mild Verified 08/19/21 22:50 Review of Systems Review of Systems: CONSTITUTIONAL: Denies fever, chills, or sweats. EYES: Denies visual changes, redness, or discharge. ENT: Denies rhinorrhea, congestion, sore throat, or otalgia. CARDIOVASCULAR: Denies chest pain, palpitations, or edema. RESPIRATORY: Denies cough or dyspnea. GASTROINTESTINAL: Denies abdominal pain, nausea, vomiting, or diarrhea. GENITOURINARY: Denies dysuria or hematuria. SKIN: Denies rash or itching. MUSCULOSKELETAL: Denies back pain, joint pain, or myalgia. NEUROLOGIC: Seizure. Denies headache, numbness, dizziness, or weakness. PSYCHIATRIC: Denies anxiety or depression. [facility] Past Medical History Medical History Calculus of ureter Social History Social History Alcohol intake: never Substance use: current Substance use type: marijuana Other substance usage details: oils and smoking Last use: 04/14/21 Gender identity (if verbalized by the patient): Female Spiritual care concerns: No Exam Narrative: GENERAL: Well-appearing, well-nourished, and in no acute distress. HEAD: Normocephalic, atraumatic. EYES: PERRLA and EOMI. ENT: Nares clear, no rhinorrhea or epistaxis. Mucous membranes moist. Oropharynx without tonsillar hypertrophy exudate or other lesions. Bilateral TMs pearly alex nonbulging NECK: Supple. No adenopathy or masses. No carotid bruits or JVD CHEST: Clear to auscultation. No respiratory distress. No wheezes rales or rhonchi HEART: Regular rate and rhythm. No murmur heard. Normal peripheral pulses. ABDOMEN: Soft, nontender, nondistended, normal active bowel sounds. EXTREMITIES: Normal range of motion. No edema. SKIN: Warm, dry, no rash. NEURO: No focal deficits. Alert and oriented x3. PSYCH: Normal mood and affect. Course Course Emergency Course: Results reviewed with patient. Patient educated on Keppra. Patient aware of the reasoning behind Keppra. Patient also aware of the consequences of not taking medication which could include . Patient still states she does not like the way the medication feels. And has issues with cost. Patient instructed that Keppra should be $9 at [facility]. Plan discharge home with follow-up with Dr. Boggs as soon as possible. Patient in agreement with plan of care. Vital Signs Vital signs: Vital Signs Temperature 36.8 C 11/20/21 20:23 Pulse Rate 85 11/20/21 20:23 Respiratory Rate 18 11/20/21 20:23 Blood Pressure 135/87 11/20/21 20:23 Pulse Oximetry 98 11/20/21 20:23 Temperature 36.8 C 11/20/21 20:23 Pulse Rate 80 11/20/21 23:01 Respiratory Rate 18 11/20/21 23:01 Blood Pressure 132/99
[2021-11-20 23:01] VITALS: BP 132/99; PULSE 80; RESP 18; O2SAT 98
--- NOTE | 2021-11-20 23:01 | PC.NURSE ---
care transferred to Vikram Ordonez RN. Pt is alert and oriented and in no distress.
[2021-11-21 00:09] VITALS: BP 127/86; PULSE 84; RESP 20; O2SAT 98
== END 2021-11-21 00:11 | disposition home or self-care (01) ==
PROVIDERS: Emergency Medicine; Emergency Provider Nurse Practitioner Family
DX: R56.9 Unspecified convulsions (principal); Z87.442 Personal history of urinary calculi; T42.6X6A Underdosing of other antiepileptic and sedative-hypnotic drugs, initial encounter; Z91.120 Patient's intentional underdosing of medication regimen due to financial hardship
CPT/HCPCS: 36415; 80053; 83605; 85025; 85610; 85730; 93005; 96365; 99284; J1953

== ENCOUNTER 2022-01-21 08:42 | Outpatient (CLI) | payer OTHER, SELFPAY ==
--- NOTE | 2022-01-22 10:10 | P.NEURO_ITS ---
Neurology EEG Report General Information Date of Study: 01/21/22 TEST eeg DIAGNOSIS Generalized seizure CONDITION OF RECORDING awake drowsy and sleep EEG NUMBER [id number] CLINICAL HISTORY patient reported she had her 1st seizure a little over a year ago and has had 5 of them she falls down shakes and foams at the mouth. EEG DESCRIPTION Basic resting occipital frequency consists of low to medium voltage 9 to 11 hertz per 2nd alpha admixed with low-voltage 15 to 18 hertz per 2nd beta. Low- voltage beta activity seen diffusely admixed with waxing and waning posterior alpha rhythm. Bilateral symmetrical sleep activity seen during sleep. Photic stimulation produced normal drive. Hyperventilation not done. Non paroxysmal. Nonfocal. Nonlateralizing. IMPRESSION No significant abnormalities noted. Clinical correlation recommended
== END 2022-01-21 08:43 | disposition home or self-care (01) ==
LOC: ANHNEURO 08:46
PROVIDERS: Visit Provider Psychiatry & Neurology Neurology
DX: R56.9 Unspecified convulsions (principal)
CPT/HCPCS: 95816

== ENCOUNTER 2023-04-22 15:43 | Emergency (ER) | payer OTHER, SELFPAY ==
[2023-04-22] VITALS (15 sets, daily range): BP systolic 116–135; BP diastolic 82–93; PULSE 64–83; RESP 14–25; TEMP 36.3; O2SAT 97–100
--- NOTE | 2023-04-22 19:57 | ECG_ITS ---
Measurements Intervals [place] Rate: 73 P: 38 OR: 163 QRS: -13 QRSD: 93 T: -6 QT: 393 QTc: 436 Interpretive Statements SINUS RHYTHM MODERATE VOLTAGE CRITERIA FOR LVH, CONSIDER NORMAL VARIANT [MEETS CRITERIA IN ONE OF: R(aVL), S(V1), R(V5), R(V5/V6)+S(V1)] POSSIBLE ANTERIOR MYOCARDIAL INFARCTION , OF INDETERMINATE AGE [30 ms Q WAVE IN V3/V4, OR R < 0.2 mV IN V4] COMPARED TO ECG 11/20/2021 20:50:04 NO SIGNIFICANT CHANGES Electronically Signed On 04-23-2023 11:37:00 CDT by Graham Hernandez M.D.
[2023-04-22 20:19] LABS: Basophils Percent Auto 0.4 % (0.2-1.2); Eosinophils Absolute Auto 0.1 K/mm3 (0-0.3); Eosinophils Percent Auto 0.7 % (0-4.4); Hematocrit 40.7 % (37.0-47.0); Hemoglobin 12.8 g/dL (12.0-15.0); Immature Granulocyte Absolute 0.02 K/mm3 (0.00-0.031); Immature Granulocyte Percent A 0.2 % (0-0.5); Lymphocytes Absolute Auto 1.47 K/mm3 (0.9-3.2); Lymphocytes Percent Auto 17.6 % (18.3-44.2); Mean Corpuscular HGB Conc 31.4 g/dl (32-36); Mean Corpuscular Hemoglobin 29.7 pg (26-34); Mean Corpuscular Volume 94.4 fl (80-100); Mean Platelet Volume 9.9 fl (7.4-10.4); Monocytes Absolute Auto 0.5 K/mm3 (0.1-0.6); Monocytes Percent Auto 6.3 % (2.6-8.5); Neutrophils Absolute Auto 6.2 K/mm3 (1.3-6.7); Neutrophils Percent Auto 74.8 % (45.5-73.1); Platelet Count Result 358 k/mm3 (150-375); Red Blood Count 4.31 M/mm3 (4.2-5.4); Red Cell Distribution Width 13.4 % (11.5-14.5); White Blood Count 8.4 K/mm3 (4.5-10.0)
[2023-04-22 20:25] LABS: Appearance Urine Cloudy (Clear); Bacteria Urine 1+ /hpf; Bilirubin Urine Negative (Negative); Blood Urine Negative (Negative); Color Urine Yellow (Yellow); Glucose Urine UA Negative (Negative); Ketones Urine 1+ mg/dL (Negative); Leukocyte Esterase Ur Negative LEU/UL (Negative); Nitrate Urine Negative (Negative); Non Pathogenic Casts 0-2; Protein Urine 1+ mg/dL (Negative); RBC Urine 0-2 /hpf (0-2); Specific Grav Ur 1.025 (1.001-1.035); Squamous Epithelial Cell Urine Moderate /hpf (Few); WBC Urine 0-5 /hpf; pH Urine 6.5 (5.0-9.0)
[2023-04-22 20:34] LABS: Amphetamine Screen Urine Negative (Negative); Barbiturate Screen Urine Negative (Negative); Benzodiazepines Screen Urine Negative (Negative); Cannabinoid Screen Urine Positive (Negative); Cocaine Screen Urine Negative (Negative); Methadone Screen Urine Negative (Negative); Opiate Screen Urine Negative (Negative); Phencyclidine Screen Urine Negative (Negative)
[2023-04-22 20:35] LABS: Alanine Aminotransferase 36 U/L (6-35); Albumin Level 4.5 g/dL (3.5-5.1); Alkaline Phosphatase 59 U/L (38-126); Anion Gap 7 mmol/L (8-16); Aspartate Amino Transferase 37 U/L (14-36); Bilirubin,Total 0.3 mg/dL (0.2-1.3); Blood Urea Nitrogen 9 mg/dL (7-17); Calcium 9.5 mg/dL (8.4-10.2); Carbon Dioxide 26 mmol/L (22-30); Chloride 103 mmol/L (98-107); Estimated CRCL calculation 107 ml/min; Estimated Glomerular Filt Rate > 60; Glucose 100 mg/dL (65-110); Potassium 4.3 mmol/L (3.4-5.0); Sodium 136 mmol/L (137-145)
[2023-04-22 20:46] LABS: Add Urine Microscopic? YES
--- NOTE | 2023-04-22 20:57 | ED.SEIZURE ---
HPI - Seizure General Chief Complaint: Seizure Stated Complaint: seizure Time Seen by Provider: 04/22/23 19:51 Source: patient Mode of arrival: ambulatory Limitations: no limitations History of Present Illness HPI Narrative: This is a 42-year-old female that presents to the emergency department for seizure-like activity today. Reports she was at work. Next thing she remembers waking up on the floor with a lot of people surrounding her. EMS was called to have the patient evaluated. She does report a history of seizures for which she takes Keppra. She reports she is taking her medication as prescribed. Reports she used to follow with a neurologist now, but she has had seen them in a while. Reports she believes she had a seizure because she was dehydrated. No recent illnesses or medication changes. Denies fever, vomiting, or focal numbness or weakness. Seizure History: Yes Related Data Home Medications Medication Instructions Recorded Confirmed multivitamin 1 tablet PO DAILY 04/14/21 01/01/22 Allergies Allergy/AdvReac Type Severity Reaction Status Date / Time No Known Allergies Allergy Mild Verified 01/01/22 14:35 Review of Systems Review of Systems: CONSTITUTIONAL: Denies fever EYES: Denies visual changes CARDIOVASCULAR: Denies chest pain RESPIRATORY: Denies dyspnea. GASTROINTESTINAL: Denies vomiting NEUROLOGIC: Denies headache, numbness, or weakness. All systems reviewed & are unremarkable except as noted in HPI and below PMFSH Past Medical History Medical History (Updated 04/22/23 @ 21:56 by Martha Elais PA-C) Calculus of ureter History of seizures Social History Social History Alcohol intake: never Substance use: current Substance use type: marijuana Other substance usage details: oils and smoking Last use: 04/14/21 Gender identity (if verbalized by the patient): Female Spiritual care concerns: No Exam Narrative: GENERAL: Well-appearing, well-nourished, and in no acute distress. HEAD: Normocephalic, atraumatic. EYES: PERRLA and EOMI. ENT: Nares clear, no rhinorrhea or epistaxis. Mucous membranes moist. Oropharynx without tonsillar hypertrophy exudate or other lesions. Bilateral TMs pearly alex non-bulging NECK: Supple. No adenopathy or masses. CHEST: Clear to auscultation. No respiratory distress. No wheezes rales or rhonchi HEART: Regular rate and rhythm. No murmur heard. Normal peripheral pulses. ABDOMEN: Soft, nontender, nondistended, normal active bowel sounds. EXTREMITIES: Normal range of motion. No edema. Strength equal in bilateral upper and lower extremities (5/5) SKIN: Warm, dry, no rash. NEURO: No focal deficits. Alert and oriented x3. Cranial nerves 2-12 grossly intact PSYCH: Normal mood and affect Course Course Emergency Course: Patient was updated on workup and agrees with plan of care Vital Signs Vital signs: Vital Signs Temperature 97.4 F L 04/22/23 16:33 Pulse Rate 82 04/22/23 16:33 Respiratory Rate 18 04/22/23 16:33 Blood Pressure 119/93 H 04/22/23 16:33 Pulse Oximetry 99 04/22/23 16:33 Oxygen Delivery Room Air 04/22/23 16:33 Temperature 97.4 F L 04/22/23 16:33 Pulse Rate 66 04/22/23 20:30 Respiratory Rate 24 H 04/22/23 20:30 Blood Pressure 118/86 04/22/23 20:02 Pulse Oximetry 100 04/22/23 20:30 Oxygen Delivery Room Air 04/22/23 19:33 MDM - Seizure MDM Narrative Medical decision making narrative: The patient presents to the emergency department for a seizure today. She does have known history of seizure disorder. Reports she takes Keppra for this. Reports she has been taking this as prescribed. No recent illnesses or changes to her medication. She is neurologically intact on arrival. Her vitals are stable. CBC and metabolic panel without concerning findings. UA without evidence of infection. Urine drug screen positive for cannab
[2023-04-22] MEDS: SODIUM CHLORIDE 0.9% IV 500 ML 999 ML IV CONT (21:18)
[2023-04-26 07:12] LABS: Levetiracetam Keppra 14.7 mcg/mL (6.0-46.0)
== END 2023-04-22 22:29 | disposition home or self-care (01) ==
PROVIDERS: Emergency Provider Physician Assistant; PCP Nurse Practitioner Family
DX: G40.909 Epilepsy, unspecified, not intractable, without status epilepticus (principal)
CPT/HCPCS: 36415; 80053; 80177; 80307; 81001; 85025; 93005; 96360; 99283; J7040